=== PATIENT | female | born 1965 | race Caucasian/White ===

== ENCOUNTER 2023-11-10 09:29 | Emergency (ER) | payer MEDICAID, OTHER ==
[2023-11-10] MEDS ORDERED: Ketorolac Tromethamine 30 MG (1 mL) VIAL ONE (09:42)
[2023-11-10] MEDS ORDERED: Ondansetron PF 4 MG/2 ML Vial ONE (09:43)
[2023-11-10] MEDS ORDERED: Famotidine/PF 20 mg/2ml Vial ONE (09:45)
[2023-11-10 10:02] LABS: #Monocytes 0.3 thou/uL (0.11-0.59); #Neutrophils 9.7 thou/uL (1.40-6.50); %Basophils 0.2 % (0.0-1.0); %Lymphocytes 14.3 % (21.0-51.0); %Monocytes 2.3 % (0.0-10.0); %Neutrophils 82.9 % (42.0-75.0); Hematocrit 50.5 % (36.0-47.0); Hemoglobin 16.9 g/dL (12.0-16.0); Mean Corpuscular HGB CONC 33.5 g/dL (32.0-36.0); Mean Corpuscular Hemoglobin 30.5 pg (27.0-31.0); Mean Corpuscular Volume 91.2 fl (78.0-98.0); Mean Platelet Volume 10.1 fL (7.4-10.4); Platelet Count 387 10x3/uL (130-400); RBC Distribution Width 13.3 % (11.5-14.5); Red Blood Cell (RBC) Count 5.54 mill/uL (4.20-5.40); White Blood Cell (WBC) Count 11.7 10x3/uL (4.8-10.8)
[2023-11-10] MEDS ORDERED: Iopamidol-370 76% 500 ML MDV (1 ML CHARGE) ONE (10:21)
[2023-11-10 10:29] LABS: ALT (SGPT) 16 U/L (8-55); AST (SGOT) 15 U/L (5-34); Albumin 4.2 g/dL (3.5-5.0); Alkaline Phosphatase 91 U/L (40-110); Anion Gap 19 mmol/L (10-20); BUN (Urea Nitrogen) 19 mg/dL (9.8-20.1); Bilirubin, Total 0.6 mg/dL (0.2-1.2); Calc. Creatinine Clearance 0 mL/min (70-130); Calcium 9.4 mg/dL (7.8-10.44); Carbon Dioxide 21 mmol/L (22-29); Chloride 98 mmol/L (98-107); Estimated GFR 57; Globulin 3.8 g/dL (2.4-3.5); Glucose 216 mg/dL (70-105); Lipase 13 U/L (8-78); Potassium 4.6 mmol/L (3.5-5.1); Sodium 133 mmol/L (136-145)
[2023-11-10 10:32] LABS: Troponin I Less than 0.010 ng/mL (< 0.028)
[2023-11-10 11:32] LABS: Actual Bicarbonate (HCO3v) 21.3 mEq/L (22-28); Base Excess -4.1 mEq/L (-2.0 to +3.0); Calcium, Ionized (venous) 1.04 mmol/L (1.16-1.32); Chloride (VBG) 100 mmol/L (98-106); Hematocrit-VBG 48 % (36.0-47.0); Hemoglobin (Hb) 16.2 g/dL (11.7-16.0); Sodium 138 mmol/L (133-146); pH (venous) 7.342 (7.32-7.43)
[2023-11-10 11:35] LABS: Magnesium 1.8 mg/dL (1.6-2.6)
[2023-11-10] MEDS ORDERED: Dicyclomine 20 MG TAB ONE (11:55)
[2023-11-10 11:57] LABS: PTT 23.7 sec (22.9-36.1); Prothrombin Time 13.3 sec (12.0-14.7)
[2023-11-10 12:19] LABS: Bacteria/HPF None Seen HPF (None Seen); Bilirubin Negative (Negative); Blood, Urine Negative (Negative); CAUTI Indications for Culture Dysuria,urgency,freq; Clarity Clear (Clear); Glucose, Urine (Dipstick) 30 mg/dL (Negative); Ketone, Urine Trace mg/dL (Negative); Leukocyte Negative Leu/uL (Negative); Nitrite Negative (Negative); Protein, Urine (Dipstick) 20 mg/dL (Neg-Trace); RBC/HPF 0-3 HPF (0-3); Urobilinogen Normal mg/dL (Less than 2); WBC/HPF 0-3 HPF (0-3); pH, Urine 5.5 (5.0-9.0)
[2023-11-10 12:30] LABS: Specific Gravity, Urine Greater than 1.060 (1.002-1.036)
[2023-11-10 12:31] LABS: Urine Culture Reflex No No
[2023-11-10 13:23] LABS: Lactic Acid 3.2 mmol/L (0.5-2.2)
[2023-11-10 13:36] LABS: Anion Gap 14 mmol/L (10-20); BUN (Urea Nitrogen) 17 mg/dL (9.8-20.1); Calc. Creatinine Clearance 0 mL/min (70-130); Calcium 8.2 mg/dL (7.8-10.44); Carbon Dioxide 21 mmol/L (22-29); Chloride 105 mmol/L (98-107); Estimated GFR 74; Glucose 138 mg/dL (70-105); Potassium 4.7 mmol/L (3.5-5.1); Sodium 135 mmol/L (136-145)
[2023-11-10] MEDS ORDERED: Prochlorperazine 10 MG/2 ML VIAL ONE (17:05)
== END 2023-11-10 18:54 | disposition home or self-care (01) ==
LOC: ERS 09:29
DX: K52.9 Noninfective gastroenteritis and colitis, unspecified (principal); E86.0 Dehydration; R73.9 Hyperglycemia, unspecified; E87.20 Acidosis, unspecified; I45.81 Long QT syndrome; I10 Essential (primary) hypertension; Z79.899 Other long term (current) drug therapy
CPT/HCPCS: 36415; 74177; 76705; 80053; 81001; 82010; 82805; 83605; 83690; 83735; 84484; 85025; 85610; 85730; 87040; 93005; 96361; 96374; 96375; J0780; J1885; J2405; Q9967; S0028